=== PATIENT | male | born 1940 | race Hispanic/Latino ===

== ENCOUNTER → 2018-12-23 | Outpatient (CLI) | payer OTHER ==
--- NOTE | 2018-12-23 12:22 | NUR ---
MBSS COMPLETED. +PENETRATION WITH THIN LIQUIDS VIA CONTINUOUS CUP SIP. RECOMMEND REGULAR TEXTURE, THIN LIQUIDS; PILLS WHOLE WITH LIQUIDS. PATIENT INFORMATION: Pt IS AN 78 YEAR OLD MALE REFERRED FOR A REPEAT MBSS SECONDARY TO COMPLAINS OF CHOKING AT MEAL TIMES. Pt REPORTS THAT HE FEELS FOOD GET STUCK POINTING TO LEVEL OF ESOPHAGUS AND HE IS NOT ABLE TO SWALLOW EVEN WATER. Pt HAS A PAST MEDICAL HISTORY SIGNIFICANT OF CORONARY ARTERY DISEASE AND WOUND. MBSS INTERPRETATION: Pt PRESENT WITH MILD PHARYNGEAL DYSPHAGIA CAUSED BY MILDLY DECREASED TONGUE BASE RETRACTION, DELAYED PHARYNGEAL RESPONSE TRIGGER AND MILDLY DECREASED LARYNGEAL ADDUCTION RESULTING IN SHALLOW PENETRATION WITH THIN LIQUIDS VIA CONTINUOUS CUP SIP WITH NO COUGH RESPONSE. NO PENETRATION WITH THIN LIQUIDS VIA CUP SIP WITH ONE SIP AT A TIME. A-P VIEW COMPLETED. TRIALS: 1. TSP PUREED: GOOD 2. TSP PUDDING: GOOD 3. MIXED TEXTURE: GOOD 4. COOKIE: GOOD 5. THIN LIQUIDS VIA CUP SIP CONTINUOUS: SHALLOW PENETRATION 6. THIN LIQUIDS VIA CUP SIP VOLUME CONTROL: GOOD 7. A-P PUDDING OBSERVATIONS: BOLUS RESIDUE NOTED IN UPPER 1/3 OF ESOPHAGUS (CLEARED WITH RE-SWALLOW), BOLUS TRANSIT WAS SLOW, DID NOT EXCEED MORE THAN 15 SECONDS. RECOMMENDATIONS: 1. REGULAR TEXTURE, THIN LIQUIDS; PILLS WHOLE WITH LIQUIDS. 2. COMPENSATORY STRATEGIES: *SEATED AT 90 DEGREES *NO STRAW *ONE SIP AT A TIME *SMALL BITES AND SIPS *SLOW RATE 3. GI CONSULT EDUCATIONS: ACCOUNTS RECEIVABLE REPRESENTATIVE EDUCATED Pt ON RISKS AND CONSEQUENCES OF ASPIRATION. Pt WAS PROVIDED WITH WRITTEN HANDOUTS OF RECOMMENDATIONS AND RESULTS. Pt AND DAUGHTER VERBALIZED AGREEMENT AND COMPLIANCE WITH RECOMMENDATIONS. G-CODES SWALLOWING: [id number] Addendum: 12/23/18 at [address] Amended: Links added.
== END | disposition home or self-care (01) ==
LOC: RAH 09:59
PROVIDERS: ATTEND Family Medicine
DX: R05 Cough (principal); R13.10 Dysphagia, unspecified; T17.308A Unspecified foreign body in larynx causing other injury, initial encounter; Y93.89 Activity, other specified; Y92.89 Other specified places as the place of occurrence of the external cause; Y99.8 Other external cause status
CPT/HCPCS: 74230; 92611; G8996; G8997; G8998

== ENCOUNTER → 2019-01-01 | Outpatient (CLI) | payer OTHER ==
[~2019-01-01] MED LIST: GADODIAMIDE 5 MMOL/10 ML VIAL 5 MMOL/10 ML ML IV ONE
== END | disposition home or self-care (01) ==
LOC: RAH 08:27
PROVIDERS: ATTEND Family Medicine
DX: G31.9 Degenerative disease of nervous system, unspecified (principal); R29.898 Other symptoms and signs involving the musculoskeletal system; R41.3 Other amnesia
CPT/HCPCS: 70553; A9579